=== PATIENT | female | born 1960 | race Two or more races ===

== ENCOUNTER 2017-09-16 15:31 | Emergency (ER) | payer MEDICAID ==
[~2017-09-16] VITALS: Ht 157.5 cm; Wt 81.6 kg
[~2017-09-16 15:31] MED LIST: ASPI81CH43 PO; HYDR25TA4 PO; LOSA100T22 PO; OME40GT PO; TRAZ50TA2 PO
[2017-09-16] MEDS ORDERED: ASPirin 81 mg TAB PO ONE (16:15)
[2017-09-16] MEDS ORDERED: DILTIAZEM HCL 25 MG/5 ML VIAL IV ONE (16:15)
[2017-09-16 16:39] LABS: Basophils # (auto) 0 uL; Basophils % (auto) 0.4 % (0.0-2.0); Eosinophils # (auto) 0.1 uL; Eosinophils % (auto) 1.7 % (0.0-7.0); Hematocrit 40.4 % (36.0-46.0); Hemoglobin 13.9 g/dL (12.2-16.2); Lymphocytes # (auto) 1.9 uL; Lymphocytes % (auto) 31.1 % (10.0-50.0); Mean Corpuscular Hemoglobin 29.3 pg (28.0-32.0); Mean Corpuscular Hgb Conc. 34.3 g/dL (32.0-36.0); Mean Corpuscular Volume 85.4 fL (80.0-100.0); Monocytes # (auto) 0.7 uL; Neutrophils # (auto) 3.3 uL; Neutrophils % (auto) 54.8 % (37.0-80.0); Nucleated Red Blood Cells % 0.1 %; Platelet Count (auto) 252 10^3/uL (140-450); Red Blood Cells 4.72 10^6/uL (4.0-5.20); Red Cell Distribution Width 13.8 % (11.8-14.3)
[2017-09-16 17:01] LABS: Alanine Aminotransferase 36 U/L (13-56); Albumin 3.9 g/dL (3.4-5.0); Alkaline Phosphatase 101 U/L (45-117); Anion Gap 9 (5-15); Aspartate Aminotransferase 20 U/L (15-37); Bilirubin, Total 0.5 mg/dL (0.2-1.0); Blood Urea Nitrogen 17 mg/dL (7-18); Carbon Dioxide 25 mmol/L (21-32); Chloride 106 mmol/L (98-107); GFR African American 69 mL/min; GFR Non-African American 57 mL/min; Glucose 115 mg/dL (74-106); Magnesium 2.4 mg/dL (1.6-2.6); Potassium 3.8 mmol/L (3.5-5.1); Sodium 140 mmol/L (136-145); Total Protein 8.3 g/dL (6.4-8.2)
[2017-09-16 17:44] LABS: INR 2.99 (0.9-1.15)
[2017-09-16 18:00] LABS: Calcium 9.1 mg/dL (8.5-10.1)
[2017-09-16 19:03] VITALS: BP 144/96
== END 2017-09-16 19:28 | disposition left against medical advice (07) ==
LOC: ER 15:31
DX: I48.0 Paroxysmal atrial fibrillation (principal); I10 Essential (primary) hypertension; K21.9 Gastro-esophageal reflux disease without esophagitis; Z86.73 Personal history of transient ischemic attack (TIA), and cerebral infarction without residual deficits; Z90.49 Acquired absence of other specified parts of digestive tract; Z90.89 Acquired absence of other organs; Z88.0 Allergy status to penicillin
CPT/HCPCS: 36415; 71045; 80053; 83735; 83880; 84484; 85025; 85379; 85610; 85730; 93005; 94761; 99291